=== PATIENT | female | born 1985 | race Asian ===

== ENCOUNTER 2018-02-14 08:42 | Inpatient (IN) ==
[~2018-02-14 08:42] MED LIST: CEFAZOLIN 2,000 MG in SYRINGE 0 ML IV SCH
[2018-02-14] MEDS: LACTATED RINGER'S 1,000 ML IV SCH ×2 (09:09→10:11)
[2018-02-14 09:37] LABS: Basophils # (auto) 0.02 K/uL (0-0.2); Basophils % (auto) 0.2 %; Eosinophils # (auto) 0.04 K/uL (0-0.5); Eosinophils % (auto) 0.5 %; Hematocrit (blood only) 37.7 % (37-47); Hemoglobin 12.6 g/dL (12.0-16.0); Immature Granulocytes # (auto) 0.05 K/uL (0.00-0.02); Immature Granulocytes % (auto) 0.6 %; Lymphocytes # (auto) 1.19 K/uL (1.2-3.4); Lymphocytes % (auto) 14.4 %; Mean Corpuscular Hgb Conc 33.4 g/dL (32-36); Mean Platelet Volume 11.1 fL (7.4-10.4); Monocytes # (auto) 0.82 K/uL (0.11-0.59); Neutrophils # (auto) 6.12 K/uL (1.4-6.5); Neutrophils % (auto) 74.3 %; Platelet Count 160 K/uL (130-400); RDW Coefficient of Variation 13.2 % (11.5-14.5); RDW Standard Deviation 45.9 fL (36.4-46.3); Red Blood Count 3.97 M/uL (4.2-5.4); White Blood Count 8.24 K/uL (4.8-10.8)
[2018-02-14] MEDS ORDERED: MoRPHine SULFATE PF 1 MG/ML 10 ML AMP/VIAL ONE (10:00)
--- NOTE | 2018-02-14 10:17 | Anesthesiology Consultation ---
Date of Service February 14, 2018 Assessment & Plan (1) Encounter for pre-operative examination: Chart Review Chart Review: Acceptable Risk for Surgery History Surgery Operation Date: 02/14/18 09:40 Proposed Procedures p Section in LD - Gabo Guthrie MD Height/Weight Height: 5 ft 3 in Weight: 58.967 kg Allergies Allergy/AdvReac Type Severity Reaction Status Date / Time No Known Allergies Allergy Unverified 02/14/18 10:13 Medications Active Medications Generic Name Dose Route Start Last Admin Trade Name Freq PRN Reason Stop Dose Admin Citric Acid/Sodium Citrate 30 ml 02/15/18 06:00 02/14/18 09:58 Bicitra PO 02/15/18 06:01 30 ml PREOP JORI Administration Beta Sandy Beta Sandy Taken Within 24 Hours: No Past Medical History Medical History No significant medical problems Past Surgical History Surgical History No history of previous surgery Past Anesthesia History No Hx of Anesthesia Complications Social History Smoking Status: Never smoker Do You Dip or Chew Tobacco: No Hx Alcohol Use: No Hx Substance Use: No substance use type: does not use Exercise / Class Metabolic Activity II 4-5 Yardwork/Stairs/Walk up hill Physical Exam Vital Signs Last Vital Signs Temp 36.8 C 02/14/18 09:16 Pulse 66 02/14/18 10:00 Resp 16 02/14/18 09:16 BP 113/69 02/14/18 10:00 Testing Laboratory Results 02/14/18 09:25
[2018-02-14] MEDS ORDERED: LACTATED RINGER'S 500 ML IV PRN (10:47)
[2018-02-14] MEDS ORDERED: MoRPHine SULFATE PF 1 MG/ML 10 ML AMP/VIAL INT SPINAL ONE (10:47)
[2018-02-14] MEDS ORDERED: NALBUPHINE HCL INJ 10 MG/ML AMP IV PRN (10:47)
[2018-02-14] MEDS ORDERED: MEPERIDINE HCL 25 MG/ML CARP IV PRN (10:47)
[2018-02-14] MEDS ORDERED: NALOXONE HCL 0.08 MG in SYRINGE 1.8 ML IV PRN (10:47)
[2018-02-14] MEDS ORDERED: NALOXONE HCL 1 MG in SODIUM CHLORIDE 0.9% 1000ML 1,000 ML IV PRN (10:47)
[2018-02-14] MEDS ORDERED: PROMETHAZINE HCL 6.25 MG in SODIUM CHLORIDE 0.9% 50 ML IV PRN (10:47)
[2018-02-14] MEDS ORDERED: NALOXONE HCL 0.4 MG/1 ML VIAL/CARP IV PRN (10:47)
[2018-02-14] MEDS ORDERED: KETOROLAC 30 MG/ML VIAL IV PRN (10:47)
[2018-02-14] MEDS ORDERED: ePHEDrine sulfate 50 MG/ML AMP IV PRN (10:47)
[2018-02-14] MEDS ORDERED: ONDANSETRON INJ 2 MG/ML 2 ML VIAL IV PRN ×2 (10:47→11:29)
[2018-02-14] MEDS ORDERED: DiphenhydrAMINE HCL 50 MG/ML VIAL IV PRN (10:47)
[2018-02-14] MEDS ORDERED: LIDOCAINE HCL 2% MPF (LOCAL) 5 ML VIAL INFIL ONE (10:55)
[2018-02-14] MEDS ORDERED: METOCLOPRAMIDE HCL INJ 5 MG/ML 2 ML VIAL ONE (10:55)
[2018-02-14] MEDS ORDERED: OXYTOCIN 10 UNITS/ML VIAL ONE (10:55)
[2018-02-14] MEDS ORDERED: ONDANSETRON INJ 2 MG/ML 2 ML VIAL ONE (10:55)
[2018-02-14] MEDS ORDERED: PROPOFOL IV EMULSION 10 MG/ML 20 ML VIAL IV ONE (10:55)
[2018-02-14] MEDS ORDERED: DC INTRASPINAL MORPHINE SCH (11:00)
[2018-02-14] MEDS ORDERED: NO NARCOTICS OR SEDATIVES SCH (11:00)
[2018-02-14] MEDS ORDERED: SODIUM CHLORIDE 0.9% 1000ML 1,000 ML IV SCH (11:00)
--- NOTE | 2018-02-14 11:28 | Post Operative Brief Note ---
Immediate Post Op Note v1 Date of Surgery February 14, 2018 Pre & Post Diagnosis Operation Date: 02/14/18 09:40 Pre-Op Diagnosis: PREVIOUS SECTION; SROM AT 38 6/7 WEEKS; DESIRES REPEAT SECTION. Post-Op Diagnosis: SAME PREOP Procedure Operation Date: 02/14/18 09:40 Actual Procedures p Section in LD, LIVE MALE AT 1048(Bilateral) - Gabo Guthrie MD Surgeon Gabo Guthrie MD Technology Teacher Nabila De La Garza RN Estimated Blood Loss 600 Findings Consistent with Post-Op Diagnosis Drains Milton Catheter
[2018-02-14] MEDS ORDERED: HYDROCORTISONE ACETATE 25 MG SUPP PR PRN (11:29)
[2018-02-14] MEDS ORDERED: SUPERCREAM 0.870% 15 GM JAR EXT PRN (11:29)
[2018-02-14] MEDS ORDERED: DIPHTHERIA/TETANUS/PERTUSSIS 0.5 ML SYR/VIAL IM ONE (11:29)
[2018-02-14] MEDS ORDERED: BENZOCAINE 20% AER SPR 82.5 GM CAN EXT PRN (11:29)
[2018-02-14] MEDS ORDERED: PROMETHAZINE HCL 25 MG in SODIUM CHLORIDE 0.9% 50 ML IV PRN (11:29)
[2018-02-14] MEDS ORDERED: LACTATED RINGER'S 1,000 ML IV SCH (11:30)
--- NOTE | 2018-02-14 12:01 | Anesthesiology Progress Note ---
Date of Service February 14, 2018 Anesthesia Post Procedure Vital Signs Vital Signs: Temp Pulse Pulse Resp BP Pulse Ox 02/14/18 11:57 52 L 100 02/14/18 11:56 52 L 106/63 02/14/18 11:52 55 L 100 02/14/18 11:47 55 L 99 02/14/18 11:46 54 L 106/60 02/14/18 11:42 54 L 100 02/14/18 11:38 54 L 103/57 L 02/14/18 11:37 56 L 97 02/14/18 11:32 36.4 C L 56 L 18 100 02/14/18 10:00 66 113/69 02/14/18 09:27 69 121/67 02/14/18 09:16 36.8 C 69 16 121/67 Notes Mental Status: alert / awake / arousable Patient Amnestic to Procedure: Yes Nausea / Vomiting: adequately controlled Pain: adequately controlled Airway Patency, RR, SpO2: stable & adequate BP & HR: stable & adequate Hydration State: stable & adequate Anesthetic Complications: no major complications apparent
[2018-02-14] MEDS: OXYTOCIN 30 UNITS in LACTATED RINGER'S 1,000 ML IV SCH ×2 (13:39→21:13)
--- NOTE | 2018-02-14 14:38 | History and Physical Report ---
DATE OF ADMISSION: 02/14/2018 REASON FOR ADMISSION: Ruptured membranes at term. HISTORY OF PRESENT ILLNESS: The patient is a 32-year-old female para 1-0-0-1, EDC 02/22/2018, 38 plus weeks, with spontaneous rupture of membranes this morning. The patient is scheduled for elective repeat section, does not want a trial of labor. PAST MEDICAL HISTORY: Unremarkable. PAST SURGICAL HISTORY: Prior in 2014 in [place]. ALLERGIES: No known allergies. MEDICATIONS: vitamins. PHYSICAL EXAMINATION: HEENT: Within normal limits. LUNGS: Clear to auscultation. HEART: Regular rate and rhythm. ABDOMEN: Soft, gravid. heart tone category 1. NEUROLOGICAL: Intact. EXTREMITIES: Within normal limits. No edema. LABORATORY DATA: Blood type is AB-positive. Remaining labs are normal. ASSESSMENT: Term with desire for elective repeat section and declines . PLAN: Repeat section under spinal anesthesia.
[2018-02-14] MEDS: SIMETHICONE 80 MG CHEW PO SCH ×3 (17:06→20:27)
[2018-02-14] MEDS: DOCUSATE SODIUM 100 MG CAP PO SCH (20:27)
--- NOTE | 2018-02-14 23:50 | Delivery Summary ---
DATE OF OPERATION: 02/14/2018 PREOPERATIVE DIAGNOSIS: Term elective repeat section. POSTOPERATIVE DIAGNOSIS: Term elective repeat section. PROCEDURE: Repeat section, low segment transverse. SURGEON: Gabo Guthrie MD FLIGHT MANAGER: Nabila De La Garza RN ANESTHESIA: Spinal with Duramorph. CLINICAL HISTORY: The patient is a 32-year-old female para 1-0-0-1 at 38 weeks and 6 days, admitted with spontaneous rupture of membranes. The patient is a term repeat elective section. The patient of Dr. Lewis, presents to labor room with ruptured membranes confirmed by [facility]. The patient was set up for repeat section. She does not want . DESCRIPTION OF PROCEDURE: After satisfactory spinal anesthesia, the patient was prepped and draped in usual sterile fashion. Timeout was called and antibiotics were given preop. A low Pfannenstiel incision through a prior scar entering into the abdominal cavity in successive layers without difficulty was done. Upon entering into the peritoneal cavity, the bladder flap was made with sharp dissection, a low segment transverse incision over the lower uterine segment was made. The incision was nicked. Amniotic fluid was clear. The incision was widened in the AP diameter. The baby was then delivered with the aid of fundal pressure from the vertex presentation, delivering a live male. The umbilical cord was doubly clamped and cut. Baby handed to operator lights after 1 minute of delayed cord clamping. Apgars were 8 and 8. weight pending. Cord blood was obtained. Placenta delivered spontaneously and intact. Uterus was then exteriorized. Ring forceps was then placed on both angles in the inferior margins. Uterus was closed in double layer closure with 0 Vicryl suture in a continuous interlocking fashion followed by a second imbricating suture. Tubes and ovaries bilaterally were found to be within normal limits. The contents of the abdominal and pelvic cavity were then irrigated to clear. Uterus was placed back into the normal anatomical position. Initial sponge, needle, and instrument count were found to be correct. The fascia was then reapproximated from both ends using 0 Vicryl suture in a continuous fashion. Subcuticular space was irrigated. Bleeders were cauterized. Subcuticular space was then closed with 3-0 plain suture. The old scar was then removed and then skin incision was then closed with 4-0 Monocryl suture. Steri-Strips were then applied. Clear urine was noted from the Milton. At the end of the procedure, the estimated blood loss was 600 mL. The total fluids were 2800 mL and the urine output was 65 0mL. The patient was then placed on a stretcher supine and taken to recovery room in stable condition. I attest to the content of the Intraoperative Record and any orders documented therein. Any exceptions are noted below. MTDD
[2018-02-15] MEDS ORDERED: MEPERIDINE HCL 50 MG/ML CARP IV PRN (04:49)
[2018-02-15] MEDS ORDERED: DiphenhydrAMINE HCL 50 MG/ML VIAL IV PRN (04:49)
[2018-02-15] MEDS ORDERED: KETOROLAC 30 MG/ML VIAL IV PRN (04:49)
[2018-02-15] MEDS: OXYCODONE/ACETAMINOPHEN 5mg/325mg TAB PO PRN ×4 (05:03→18:16)
[2018-02-15] MEDS ORDERED: CITRIC ACID/SODIUM CITRATE 15 ML UDC PO SCH (06:00)
[2018-02-15 06:25] LABS: Basophils # (auto) 0.01 K/uL (0-0.2); Basophils % (auto) 0.1 %; Eosinophils # (auto) 0.02 K/uL (0-0.5); Eosinophils % (auto) 0.2 %; Hematocrit (blood only) 34.7 % (37-47); Hemoglobin 11.8 g/dL (12.0-16.0); Immature Granulocytes # (auto) 0.04 K/uL (0.00-0.02); Immature Granulocytes % (auto) 0.3 %; Lymphocytes # (auto) 0.77 K/uL (1.2-3.4); Lymphocytes % (auto) 5.9 %; Mean Corpuscular Volume 94.8 fL (80-100); Mean Platelet Volume 11.1 fL (7.4-10.4); Monocytes # (auto) 1.08 K/uL (0.11-0.59); Monocytes % (auto) 8.3 %; Neutrophils # (auto) 11.08 K/uL (1.4-6.5); Neutrophils % (auto) 85.2 %; Platelet Count 150 K/uL (130-400); RDW Coefficient of Variation 13.5 % (11.5-14.5); RDW Standard Deviation 46.4 fL (36.4-46.3); Red Blood Count 3.66 M/uL (4.2-5.4)
[2018-02-15] MEDS: DOCUSATE SODIUM 100 MG CAP PO SCH ×2 (09:27→20:06)
[2018-02-15] MEDS: SIMETHICONE 80 MG CHEW PO SCH ×4 (09:27→20:06)
[2018-02-15] MEDS: PRENATAL VITAMIN 1 TAB PO SCH (09:27)
[2018-02-15] MEDS: FERROUS SULFATE 325 MG TAB PO SCH (09:27)
[2018-02-15] MEDS: IBUPROFEN 600 MG TAB PO PRN ×3 (09:34→18:16)
--- NOTE | 2018-02-15 17:01 | Obstetrical Progress Note ---
Date of Service February 15, 2018 Assessment & Plan (1) delivery delivered: post op day #1 pt doing well no complaints continue day #1 care Subjective Ambulation: ambulating normally Voiding: no voiding problems Passing Gas:: Yes Diet Tolerance:: clear liquids Lochia:: Small Feeding Type:: breast feeding Review of Systems All systems reviewed & are unremarkable except as noted in HPI & below Physical Exam Vital Signs (Past 24 Hours) Last Vital Signs Temp 36.8 C 02/15/18 12:05 Pulse 68 02/15/18 12:05 Resp 18 02/15/18 12:05 BP 99/62 L 02/15/18 12:05 Pulse Ox 97 02/15/18 12:05 Constitutional WD/WN, vitals as above well developed and well nourished Eyes PERRL, conjunctivae normal, anicteric sclerae ENMT external ear and nose normal, oropharynx normal Neck trachea midline, no thyromegaly Respiratory normal respiratory effort, lungs clear to auscultation Cardiovascular RRR, no murmur, no edema Chest (Breasts) normal inspection/palpation of breasts Gastrointestinal (Abdomen) normal bowel sounds, soft, nontender, no hepatosplenomegaly Musculoskeletal no cyanosis or clubbing, extremities motor strength 5/5 Skin no rashes, warm and dry + incision (Clean,dry and intact) Neurologic patellar DTR's 2+ bilat, sensation intact Psychiatric A+Ox3, euthymic affect Genitourinary normal external appearance Lymphatic no cervical or axillary lymphadenopathy
[2018-02-15] MEDS ORDERED: BISACODYL 5 MG TABEC PO SCH (20:00)
[2018-02-16] MEDS: OXYCODONE/ACETAMINOPHEN 5mg/325mg TAB PO PRN ×4 (04:43→16:29)
[2018-02-16] MEDS: IBUPROFEN 600 MG TAB PO PRN ×4 (04:43→16:28)
[2018-02-16] MEDS: PRENATAL VITAMIN 1 TAB PO SCH (08:26)
[2018-02-16] MEDS: DOCUSATE SODIUM 100 MG CAP PO SCH ×2 (08:26→21:00)
[2018-02-16] MEDS: SIMETHICONE 80 MG CHEW PO SCH ×4 (08:27→21:00)
[2018-02-16] MEDS: FERROUS SULFATE 325 MG TAB PO SCH (08:27)
[2018-02-16] MEDS ORDERED: BISACODYL 10 MG SUPP PR PRN (11:30)
--- NOTE | 2018-02-16 11:33 | Surgery Progress Note ---
Date of Service February 16, 2018 Subjective doing well no pain Physical Exam 2 Vital Signs (Past 24 Hours): Last Vital Signs Temp 36.9 C 02/16/18 08:30 Pulse 69 02/16/18 08:30 Resp 20 02/16/18 08:30 BP 125/82 02/16/18 08:30 Pulse Ox 97 02/15/18 23:35 Constitutional: WD/WN, vitals as above comfortable Fundus firm incision clean dry and intact' no edema POD#2 tent d/c in AM
[2018-02-17] MEDS: IBUPROFEN 600 MG TAB PO PRN ×3 (01:52→13:35)
[2018-02-17] MEDS: DOCUSATE SODIUM 100 MG CAP PO SCH (09:28)
[2018-02-17] MEDS: OXYCODONE/ACETAMINOPHEN 5mg/325mg TAB PO PRN ×2 (09:28→13:34)
[2018-02-17] MEDS: SIMETHICONE 80 MG CHEW PO SCH (09:28)
[2018-02-17] MEDS: FERROUS SULFATE 325 MG TAB PO SCH (09:49)
[2018-02-17] MEDS: PRENATAL VITAMIN 1 TAB PO SCH (09:49)
--- NOTE | 2018-02-17 10:46 | Obstetrical Progress Note ---
Date of Service February 17, 2018 Physical Exam 2 Vital Signs (Past 24 Hours): Last Vital Signs Temp 36.5 C 02/17/18 07:24 Pulse 74 02/17/18 07:24 Resp 16 02/17/18 07:24 BP 126/80 02/17/18 07:24 Pulse Ox 96 02/17/18 07:24 Physical Exam: abdomen soft and non tender vaginal bleeding scant to moderate no calf tenderness incision clean and dry ambulating well patient requests discharge
--- NOTE | 2018-02-17 18:37 | Discharge Summary ---
Mrs. Hawk was followed in my office for care and delivery. She did have a previous in 2014. She requested a repeat section. Her due date was 02/22/2018. Blood type is A positive, rubella immune. She basically showed up in labor, at which time as per her request she underwent a repeat low segment section. There were no problems. Her preoperative hemoglobin was 12.6 and hematocrit 37.7. Postoperatively was 11.8, hematocrit 34.7. She had a smooth postoperative course, she remained afebrile. Bowel sounds returned promptly. On 02/17/2018 she requested discharge, at which time she was ambulating well, eating well. Pain was well controlled with a prescription of Percocet and Motrin. She was given scripts for Percocet and Motrin and return to the office next week for removal of claire and to call if she had a temperature over 100 or any problems and to come back to the office for 6 week visit.
== END 2018-02-17 14:00 | disposition home or self-care (01) | DRG 788 ==
LOC: OPB 08:42 → 4S1 08:46 → 4S2 14:26